=== PATIENT | male | born 1990 | race Caucasian/White ===

== ENCOUNTER 2023-02-25 15:31 | Inpatient (IN) | payer OTHER ==
[2023-02-25 15:53] LABS: Basophils # (A) 0.1 k/uL (0-0.2); Basophils % (A) 0 %; Eosinophils # (A) 0.3 k/uL (0-0.7); Eosinophils % (A) 2 %; HCT 42.5 % (39.0-53.0); HGB 14.5 gm/dL (13.0-17.5); Lymphocytes # (A) 2.1 k/uL (1.0-4.8); Lymphocytes % (A) 17 %; MCH 31.9 pg (25.0-35.0); MCHC 34.2 g/dL (31.0-37.0); MCV 93.4 fL (80.0-100.0); Mean Platelet Volume 7.3; Monocytes # (A) 0.6 k/uL (0-1.0); Monocytes % (A) 5 %; Neutrophils # (A) 8.8 k/uL (1.3-7.7); Neutrophils % (A) 73 %; Platelet Count 398 k/uL (150-450); RBC 4.55 m/uL (4.30-5.90); RDW 12.8 % (11.5-15.5)
[2023-02-25 16:08] LABS: ALT 76 U/L (4-49); AST 44 U/L (17-59); African American GFR (CKD) >90 (>60 ml/min/1.73 sqM); Albumin 4.7 g/dL (3.5-5.0); Alkaline Phosphatase 60 U/L (38-126); Anion Gap 13 mmol/L; Blood Urea Nitrogen 9 mg/dL (9-20); Calcium 10.4 mg/dL (8.4-10.2); Carbon Dioxide 22 mmol/L (22-30); Chloride 105 mmol/L (98-107); Glucose 100 mg/dL (74-99); Non-African American GFR(CKD) >90 (>60 ml/min/1.73 sqM); Potassium 4.1 mmol/L (3.5-5.1); Sodium 140 mmol/L (137-145); Total Bilirubin 0.4 mg/dL (0.2-1.3); Total Protein 7.6 g/dL (6.3-8.2)
--- NOTE | 2023-02-25 16:08 | XR ---
EXAMINATION TYPE: XR KUB DATE OF EXAM: 02/25/2023 Comparison: None Clinical History: 32-year-old male with abdominal pain Findings: The mild patchy density at the left base. No evidence for free intraperitoneal air. No dilated small bowel or air-fluid levels. There appears to be prominent ingested material within th e stomach. No significant stool burden. Mild scattered air within the colon. No suspicious calcifications seen. Impression: 1. Mild patchy atelectasis versus developing infiltrate at the left base. Correlate with patient's sy mptoms. 2. No evidence for free air or bowel obstruction. No significant stool burden. 3. The stomach appears full.
--- NOTE | 2023-02-25 16:32 | ED ---
Abdominal Pain HPI - General Chief Complaint: Abdominal Pain Stated Complaint: pancreatitis Source: patient, RN notes reviewed Mode of arrival: ambulatory Limitations: no limitations - History of Present Illness Initial Comments: 32-year-old male with a history of arthritis presents with about one hour castrate pain, sharp. It radiates to the back. Patient just got out of rehab, has not used alcohol in 3 days. Patient denies any vomiting but has nausea. Patient states he was diagnosed with pancreatitis at [facility] prior to going to rehabilitation. Denies any fever or chills. No changes to balance urination. No chest pain or shortness of breath. No abdominal pain elsewhere. No previous surgeries. Denies any illicit drug abuse. - Related Data Allergies Allergy/AdvReac Type Severity Reaction Status Date / Time cat dander Allergy Rash/Hives Verified 02/25/23 15:37 latex Allergy Rash/Hives Verified 02/25/23 15:37 Review of Systems ROS Statement: Those systems with pertinent positive or pertinent negative responses have been documented in the HPI. ROS Other: All systems not noted in ROS Statement are negative. Past Medical History Past Surgical History: No Surgical Hx Reported Smoking Status: Current every day smoker, Vaper Past Alcohol Use History: Abuse Past Drug Use History: Cocaine, Marijuana General Exam - General Exam Comments Initial Comments: Noted hypertensive. Does not appear to be ill or toxic. Cranial nerves II through XII grossly intact. Alert and oriented 4. Capillary refill less than 2 seconds. Limitations: no limitations General appearance: alert, in distress Head exam: Present: atraumatic, normocephalic, normal inspection Eye exam: Present: normal appearance, PERRL, EOMI. Absent: scleral icterus, conjunctival injection, periorbital swelling ENT exam: Present: normal exam, normal oropharynx, mucous membranes moist Neck exam: Present: normal inspection, full ROM. Absent: tenderness, meningismus, lymphadenopathy Respiratory exam: Present: normal lung sounds bilaterally. Absent: respiratory distress, wheezes, rales, rhonchi, stridor, chest wall tenderness, accessory muscle use Cardiovascular Exam: Present: regular rate, normal rhythm, normal heart sounds. Absent: systolic murmur, diastolic murmur, rubs, gallop, clicks GI/Abdominal exam: Present: tenderness, guarding, normal bowel sounds. Absent: distended, rebound, rigid Extremities exam: Present: normal inspection, full ROM, normal capillary refill. Absent: tenderness, pedal edema, joint swelling, calf tenderness Back exam: Present: normal inspection Neurological exam: Present: alert, oriented X3, CN II-XII intact Psychiatric exam: Present: normal affect, normal mood Skin exam: Present: warm, dry, intact, normal color. Absent: rash Course Vital Signs 02/25/23 15:33 Temperature 97.7 F Pulse Rate 95 Respiratory 20 Rate Blood Pressure 149/99 O2 Sat by Pulse 98 Oximetry - Reevaluation(s) Reevaluation #1: 02/25/23 18:00 Patient reevaluated, still having intense pain. Has not received any fluids or pain medication at this point. Lipase elevated. Morphine, 2 L normal saline fluid bolus, Zofran ordered. We'll plan for admission Reevaluation #2: 02/25/23 18:06 The case was discussed in detail with ED attending physician. Presentation, findings, treatment plan discussed in detail. Call placed to [facility] Reevaluation #3: 02/25/23 18:11 Case discussed in detail with the hospitalist physician, Dr. Nazario Christiansen admission of the patient. Gallbladder ultrasound was added. Medical Decision Making - Medical Decision Making Visual Physical Exam Vital signs reviewed General: Well-appearing, nontoxic, mild distress Head: Normocephalic, atraumatic Eyes: PERRLA, EOMI ENT: Airway patent Chest: Nonlabored breathing Skin: No visual rash, normal skin tone Neuro: Alert and oriented 3 Musculoskeletal: No gross abnormalities Signed, Dilan House PA-C Was pt. sent in by a medical professional or institution? @ -no Did you speak to anyone other than the patient for history? @ -no Did you review nursing and triage notes? @ -agree Were old charts reviewed? @ -no Differential Diagnosis? @ -Pancreatitis, gallbladder disease, cholecystitis, a standing cholangitis, peptic ulcer disease, less likely perforated viscus, does not appear to be definitively consistent with infectious process. Unlikely to be cardiopulmonary related as this does not fit the clinical picture. Does not fit the clinical picture of appendicitis or diverticulitis. EKG interpreted by me (3pts min.)? @ -None X-rays interpreted by me (1pt min.)? @ -Independent interpretation of the x-ray by me, KUB reveals no evidence of acute pathology. CT interpreted by me (1pt min.)? @ -None U/S interpreted by me (1pt. min.)? @ -A bladder ultrasound ordered and pending What testing was considered but not performed? (CT, X-rays, U/S, labs)? Why? @ CT was considered given the pancreatitis. However there was no indication for early utility, would not change initial treatment or disposition. Call blood or ultrasound ordered. What meds were considered but not given? Why? @ -[none] Did you discuss the management of the patient with other professionals? @ -Case discussed in detail with Dr. Lange, [facility]--accepts admission Did you reconcile home meds? @ -[none] Was smoking cessation discussed for >3mins.? @ -Cessation discussed I discussed smoking cessation for greater than 3 minutes. The risks of smoking were discussed with the patient including but not limited to risks of cancer, stroke, coronary artery disease and COPD. Also discussed with the patient were multiple methods of quitting smoking. Lastly we discussed the financial costs of smoking. Was critical care preformed (if so, how long)? @ -[none] Were there social determinants of health that impacted care today? How? (Homelessness, low income, unemployed, alcoholism, drug addiction, transportation, low edu. Level, literacy, decrease access to med. care, nursing home, rehab)? @ -No primary care physician, history of alcohol abuse Was there de-escalation of care discussed even if they declined? (Discuss DNR or withdrawal of care, Hospice)? @ -[Discuss DNR or withdrawal of care, Hospice?] What co-morbidities impacted this encounter? (DM, HTN, Smoking, COPD, CAD, Can cer, CVA, Hep., AIDS, mental health diagnosis, sleep apnea, morbid obesity)? @ -History of alcohol abuse, cigarette smoking Was patient admitted / discharged? @ -Admitted Undiagnosed new problem with uncertain prognosis? @ -Exacerbation of pancreatitis, patient had pancreatitis previously. Drug Therapy requiring intensive monitoring for toxicity (Heparin, Nitro, Insulin, Cardizem)? @ -[none] Were any procedures done? @ -[none] Diagnosis/symptom? @ -Acute pancreatitis Acute, or Chronic, or Acute on Chronic? @ -Acute Uncomplicated (without systemic symptoms) or Complicated (systemic symptoms)? @ -Essentially uncomplicated at this point. Side effects of treatment? @ -[none] Exacerbation, Progression, or Severe Exacerbation] @ -Recurrence Poses a threat to life or bodily function? @ -Could pose threat to life or bodily function Patient admitted to [facility]. Will be kept nothing by mouth. Lipase was in excess of 20,000. No definitive evidence of infectious process. Antibiotics were considered but withheld. He scan was considered but withheld. Gallbladder ultrasound pending. Patient given morphine 4 mg IV push and Zofran here in the ER. 2 L fluid bolus. The case was discussed in detail with ED attending physician. Presentation, findings, treatment plan discussed in detail. Discussed in detail with Dr. Bender - Lab Data Result diagrams: 02/25/23 15:37 02/25/23 15:37 Lab Results 02/25/23 02/25/23 02/25/23 Range/Units 15:37 15:37 15:38 WBC 12.0 H (3.8-10.6) k/uL RBC 4.55 (4.30-5.90) m/uL Hgb 14.5 (13.0-17.5) gm/dL Hct 42.5 (39.0-53.0) % MCV 93.4 (80.0-100.0) fL MCH 31.9 (25.0-35.0) pg MCHC 34.2 (31.0-37.0) g/dL RDW 12.8 (11.5-15.5) % Plt Count 398 (150-450) k/uL MPV 7.3 Neutrophils % 73 % Lymphocytes % 17 % Monocytes % 5 % Eosinophils % 2 % Basophils % 0 % Neutrophils # 8.8 H (1.3-7.7) k/uL Lymphocytes # 2.1 (1.0-4.8) k/uL Monocytes # 0.6 (0-1.0) k/uL Eosinophils # 0.3 (0-0.7) k/uL Basophils # 0.1 (0-0.2) k/uL Sodium 140 (137-145) mmol/L Potassium 4.1 (3.5-5.1) mmol/L Chloride 105 (98-107) mmol/L Carbon Dioxide 22 (22-30) mmol/L Anion Gap 13 mmol/L BUN 9 (9-20) mg/dL Creatinine 0.64 L (0.66-1.25) mg/dL Est GFR (CKD-EPI)AfAm >90 (>60 ml/min/1.73 sqM) Est GFR (CKD-EPI)NonAf >90 (>60 ml/min/1.73 sqM) Glucose 100 H (74-99) mg/dL Calcium 10.4 H (8.4-10.2) mg/dL Total Bilirubin 0.4 (0.2-1.3) mg/dL AST 44 (17-59) U/L ALT 76 H (4-49) U/L Alkaline Phosphatase 60 (38-126) U/L Troponin I <0.012 (0.000-0.034) ng/mL Total Protein 7.6 (6.3-8.2) g/dL Albumin 4.7 (3.5-5.0) g/dL Amylase 3420 H* (30-110) U/L Lipase >05145 H (23-300) U/L Disposition Clinical Impression: Pancreatitis Disposition: ADMITTED IP TO THIS [facility] Condition: Stable Is patient prescribed a controlled substance at d/c from ED?: No Referrals: None,Stated [Primary Care Provider] - 1-2 days Time of Disposition: 18:11 Decision to Admit Reason: Admit from EC Decision Time: 18:11
[2023-02-25 17:24] LABS: Lipase >20000 U/L (23-300)
[2023-02-25 17:26] LABS: Amylase 3420 U/L (30-110)
[2023-02-25] MEDS ORDERED: MORPHINE SULFATE 4 MG/ML SYRINGE IVP STA (17:57)
[2023-02-25] MEDS ORDERED: ONDANSETRON 4 MG/2 ML VIAL IVP STA (17:57)
[2023-02-25] MEDS ORDERED: SODIUM CHLORIDE 0.9% 2,000 ML IV STA (17:59)
[2023-02-25] MEDS ORDERED: NALOXONE 0.4 MG/ML 1 ML VIAL IV PRN (18:11)
[2023-02-25] MEDS ORDERED: ACET/COD 300 MG/30 MG STARTER PACK 6 TAB BTL PO STA (18:11)
[2023-02-25] MEDS ORDERED: MORPHINE SULFATE 4 MG/ML SYRINGE IV STA (18:54)
--- NOTE | 2023-02-25 19:52 | US ---
EXAMINATION TYPE: US gallbladder DATE OF EXAM: 02/25/2023 COMPARISON: NONE CLINICAL INDICATION: Male, 32 years old with history of Upper abdominal pain; severe epigastric pain today. Lipase = > 30785. Amylase = 3420. TECHNIQUE: Multiple sonographic images of the right upper quadrant are obtained. FINDINGS: EXAM MEASUREMENTS: Liver Length: 14.0 cm Gallbladder Wall: 0.19 cm CBD: 0.19 cm Right Kidney: 10.2 x 5.4 x 5.3 cm Sap Hana Architect notes: Slightly limited due to pt not being able to tolerate pressure near epigastric reg ion and unable to hold breath Pancreas: There is visualized. It appears heterogeneous and thickened. Liver: Left lobe limited due to pt not tolerating pressure in epigastric region Gallbladder: wnl Evidence for sonographic Nieto's sign: Yes CBD: wnl Right Kidney: Cystic area seen mid pole measuring 2.0 x 1.8 x 2.1cm . Internal septations are presen t. Six-month follow-up ultrasound to reassess this complex cyst. No hydronephrosis. IMPRESSION: 1. Only a portion of the pancreatic head is seen and this appears heterogeneous and thickened. Correl ate for possible underlying acute pancreatitis. No fluid collection is identified here. 2. No gallstones or biliary ductal dilatation. 3. Six-month follow-up renal ultrasound to reassess a 2.1 cm complex cyst of the right kidney demonst rating internal septations.
[2023-02-25] MEDS ORDERED: HYDROmorphone 1 MG/ML 1 ML SYRINGE IVP STA (22:15)
--- NOTE | 2023-02-25 22:49 | P.HPIM ---
History of Present Illness H&P Date: 02/25/23 Patient is a 32-year-old male with a PMH of alcohol abuse and multiple bouts of pancreatitis who was sent to the emergency room from [place] where the patient had been staying for the past 2 weeks. Patient notes that he normally drinks a fifth to a half a gallon of whiskey daily and has been doing so for the past several years. Reports last drink was 23 days ago and he was initially at a crisis center for 9 days and was subsequently transferred to [place] where he has been for the past 2 weeks. He was doing well until earlier today when he gradually developed worsening epigastric discomfort with nausea and small amounts of vomiting constantly. He reports that the pain is 10 out of 10 in the epigastrium, nonradiating, worsened with certain movements. Denied experiencing fever, chills, cough, diarrhea. In the emergency room a gallbladder ultrasound revealed findings consistent with acute pancreatitis with no fluid collection noted with no gallstones or biliary ductal dilatation noted. There was also a 2.1 cm complex cystof the right kidney with a six-month follow-up recommended. Laboratory evaluation was remarkable for leukocytosis of 12.0, lipase greater than 20,000, amylase 3420, calcium 10.4, ALT 76. ED documentation reviewed and case discussed with ED provider. Review of systems: Pertinent positives and negatives as discussed in HPI, a complete review of systems was performed and all other systems are negative. Physical examination: Vital signs reviewed General: non toxic, no distress, appears at stated age, normal weight Derm: no unusual rashes/lesions, warm Head: atraumatic, normocephalic, symmetric Eyes: EOMI, no lid lag, anicteric sclera, pupils equal round reactive to light ENT: Nose and ears atraumatic Neck: No cervical lymphadenopathy, trachea midline, supple Mouth: no lip lesion, mucus membranes moist Cardiovascular: S1S2 reg, no murmur, positive dorsalis pedis pulse bilateral, no edema Lungs: CTA bilateral, no rhonchi, no rales, no accessory muscle use Abdominal: Severe epigastric tenderness with guarding Ext: muscle strength 5 out of 5 in all 4 extremities grossly, no gross muscle atrophy, no contractures, Neuro: CN II-XI grossly intact, no gross focal neuro deficits Psych: Alert, oriented, appropriate affect Assessment: Acute on chronic alcoholic pancreatitis Hypercalcemia Leukocytosis, suspect due to acute stressor with no signs of active infection at this time Imaging: In the emergency room a gallbladder ultrasound revealed findings consistent with acute pancreatitis with no fluid collection noted with no gallstones or biliary ductal dilatation noted. There was also a 2.1 cm complex cystof the right kidney with a six-month follow-up recommended. Data Review: Laboratory evaluation was remarkable for leukocytosis of 12.0, lipase greater than 20,000, amylase 3420, calcium 10.4, ALT 76. Plan: Continue IV fluids normal saline 150 mL/h Nothing by mouth for now Monitor lipase Pain control with morphine and Dilaudid Advised patient on importance of cessation from alcohol use DVT prophylaxis: Heparin subcu The patient is admitted with an anticipated greater than 2 midnight stay for evaluation of pancreatitis CODE STATUS: Full Code Discussed with: Patient Anticipated discharge place: [place] Past Medical History History of Any Multi-Drug Resistant Organisms: None Reported Past Surgical History: Adenoidectomy Past Anesthesia/Blood Transfusion Reactions: No Reported Reaction Past Psychological History: Anxiety, Bipolar, Depression Smoking Status: Current every day smoker, Vaper Past Alcohol Use History: Abuse Past Drug Use History: Cocaine, Marijuana Medications and Allergies Home Medications Medication Instructions Recorded Confirmed Type Acetaminophen Tab [Tylenol] 650 mg PO Q4H PRN 02/25/23 02/25/23 History Albuterol Sulfate [Albuterol 2 puff INHALATION RT-Q6H PRN 02/25/23 02/25/23 History Sulfate Hfa] Amoxic-Pot Clav 875-125Mg 1 tab PO BID 02/25/23 02/25/23 History [Augmentin 875-125] Calcium/Magnesium/Zinc/Vitamin D 1 tab PO TID PRN 02/25/23 02/25/23 History 334/134/5mg Chlorpheniramine Maleate 4 mg PO Q4H PRN 02/25/23 02/25/23 History [Chlor-Trimeton] Folic Acid 1 mg PO DAILY 02/25/23 02/25/23 History Mag Hydrox/Aluminum Hyd/Simeth 30 ml PO Q4H PRN 02/25/23 02/25/23 History [Mylanta Maximum Strength Liq] Mirtazapine [Remeron] 15 mg PO HS 02/25/23 02/25/23 History Multivitamins, Thera [Multivitamin 1 tab PO DAILY 02/25/23 02/25/23 History (formulary)] Nicotine 21Mg/24Hr Patch [Habitrol] 1 patch TRANSDERM DAILY 02/25/23 02/25/23 History OXcarbazepine [Trileptal] 300 mg PO BID 02/25/23 02/25/23 History Omeprazole [PriLOSEC] 20 mg PO DAILY PRN 02/25/23 02/25/23 History QUEtiapine FUMARATE [SEROquel] 300 mg PO HS 02/25/23 02/25/23 History Thiamine [Vitamin B-1] 100 mg PO DAILY 02/25/23 02/25/23 History Venlafaxine HCl [Effexor] 75 mg PO DAILY 02/25/23 02/25/23 History busPIRone HCl [Buspar] 10 mg PO TID 02/25/23 02/25/23 History cloNIDine HCL [Catapres] 0.1 - 0.3 mg PO Q4H PRN 02/25/23 02/25/23 History guaiFENesin [guaiFENesin Oral 200 mg PO Q4H PRN 02/25/23 02/25/23 History Solution] ondansetron HCL [Zofran] 8 mg PO Q6H PRN 02/25/23 02/25/23 History Allergies Allergy/AdvReac Type Severity Reaction Status Date / Time cat dander Allergy Rash/Hives Verified 02/25/23 19:50 latex Allergy Rash/Hives Verified 02/25/23 19:50 pollen extracts Allergy Unknown Verified 02/25/23 19:50 Physical Exam Vitals: Vital Signs Temp Pulse Pulse Resp BP BP Pulse Ox 02/25/23 20:41 98.1 F 105 H 18 147/95 100 02/25/23 20:15 90 18 168/92 99 02/25/23 18:30 99 18 176/98 99 02/25/23 15:33 97.7 F 95 20 149/99 98 Intake and Output 02/25/23 02/25/23 02/25/23 06:59 14:59 22:59 Other: Weight 86.183 kg Results CBC & Chem 7: 02/25/23 15:37 02/25/23 15:37 Labs: Abnormal Lab Results - Last 24 Hours (Table) 02/25/23 02/25/23 Range/Units 15:37 15:37 WBC 12.0 H (3.8-10.6) k/uL Neutrophils # 8.8 H (1.3-7.7) k/uL Creatinine 0.64 L (0.66-1.25) mg/dL Glucose 100 H (74-99) mg/dL Calcium 10.4 H (8.4-10.2) mg/dL ALT 76 H (4-49) U/L Amylase 3420 H* (30-110) U/L Lipase >64290 H (23-300) U/L Thrombosis Risk Factor Assmnt - Choose All That Apply Any of the Below Risk Factors Present?: No Other Risk Factors: No Thrombosis Risk Factor Assessment Level: Very Low Risk
[2023-02-25] MEDS: SODIUM CHLORIDE 0.9% 1,000 ML IV SCH (22:59)
[2023-02-26] MEDS: MORPHINE SULFATE 4 MG/ML SYRINGE IV PRN ×7 (00:48→21:12)
[2023-02-26] MEDS: HEPARIN SODIUM,PORCINE 5,000 UNIT/ML 1 ML VIAL SQ SCH ×4 (00:49→23:17)
--- NOTE | 2023-02-26 01:01 | CT ---
EXAM: CT Abdomen and Pelvis With Intravenous Contrast CLINICAL HISTORY: ITS.REASON CT Reason: pancreatitis TECHNIQUE: Axial computed tomography images of the abdomen and pelvis with intravenous contrast. CTDI is 18.7 mGy and DLP is 975.3 mGy-cm. This CT exam was performed using one or more of the following dose reduction techniques: automated exposure control, adjustment of the mA and/or kV according to patient size, and/or use of iterative reconstruction technique. COMPARISON: No relevant prior studies available. FINDINGS: Lung bases: Unremarkable. No mass. No consolidation. ABDOMEN: Liver: Hepatic steatosis. Gallbladder and bile ducts: Unremarkable. No calcified stones. No ductal dilation. Pancreas: Edema surrounding the pancreas, consistent with pancreatitis. Reactive wall thickening of the adjacent duodenum. No ductal dilation. Spleen: Unremarkable. No splenomegaly. Adrenals: Unremarkable. No mass. Kidneys and ureters: Renal cysts. No hydronephrosis. Stomach and bowel: Diverticulosis, without acute diverticulitis. No obstruction. PELVIS: Appendix: Normal appendix. Bladder: Unremarkable. No mass. Reproductive: Unremarkable as visualized. ABDOMEN and PELVIS: Intraperitoneal space: Unremarkable. No free air. No significant fluid collection. Bones/joints: No acute fracture. No dislocation. Soft tissues: Unremarkable. Vasculature: Unremarkable. No abdominal aortic aneurysm. Lymph nodes: Unremarkable. No enlarged lymph nodes. IMPRESSION: Edema surrounding the pancreas, consistent with pancreatitis. Hepatic steatosis. No pseudocyst. Reactive wall thickening of the adjacent duodenum.
[2023-02-26] MEDS: SODIUM CHLORIDE 0.9% 1,000 ML IV SCH ×4 (05:06→21:47)
[2023-02-26] MEDS: THIAMINE 100 MG TAB PO SCH (07:58)
[2023-02-26] MEDS: FOLIC ACID 1 MG TAB PO SCH (07:58)
[2023-02-26] MEDS: ONDANSETRON 4 MG/2 ML VIAL IVP PRN ×2 (07:58→14:41)
[2023-02-26] MEDS: busPIRone HCl 10 MG TAB PO SCH ×3 (07:58→20:20)
[2023-02-26] MEDS: OXcarbazepine 300 MG TAB PO SCH ×2 (07:59→20:20)
[2023-02-26] MEDS: VENLAFAXINE HCL 75 MG TAB PO SCH (08:00)
[2023-02-26 09:00] LABS: ALT 52 U/L (4-49); AST 34 U/L (17-59); African American GFR (CKD) >90 (>60 ml/min/1.73 sqM); Albumin 3.8 g/dL (3.5-5.0); Albumin/Globulin Ratio 1.5; Alkaline Phosphatase 54 U/L (38-126); Anion Gap 9 mmol/L; Blood Urea Nitrogen 5 mg/dL (9-20); Calcium 9.4 mg/dL (8.4-10.2); Carbon Dioxide 21 mmol/L (22-30); Chloride 106 mmol/L (98-107); Globulin 2.6 g/dL; Glucose 90 mg/dL (74-99); Non-African American GFR(CKD) >90 (>60 ml/min/1.73 sqM); Potassium 3.9 mmol/L (3.5-5.1); Sodium 136 mmol/L (137-145); Total Bilirubin 0.7 mg/dL (0.2-1.3); Total Protein 6.4 g/dL (6.3-8.2)
[2023-02-26 09:04] LABS: Prothrombin Time 10.6 sec (10.0-12.5)
[2023-02-26 09:33] LABS: Lipase 3884 U/L (23-300)
[2023-02-26 10:09] LABS: Basophils % (A) 0 %; Eosinophils % (A) 0 %; HCT 42.8 % (39.0-53.0); HGB 14.1 gm/dL (13.0-17.5); Lymphocytes # (A) 1.1 k/uL (1.0-4.8); Lymphocytes % (A) 8 %; MCH 31.4 pg (25.0-35.0); MCHC 32.8 g/dL (31.0-37.0); MCV 95.5 fL (80.0-100.0); Mean Platelet Volume 7.5; Monocytes # (A) 0.4 k/uL (0-1.0); Monocytes % (A) 3 %; Neutrophils # (A) 11.7 k/uL (1.3-7.7); Neutrophils % (A) 87 %; Platelet Count 354 k/uL (150-450); RBC 4.48 m/uL (4.30-5.90); RDW 12.7 % (11.5-15.5); WBC 13.4 k/uL (3.8-10.6)
[2023-02-26 10:36] LABS: Appearance,Urine Clear (Clear); Bilirubin,Urine Negative (Negative); Blood,Urine Negative (Negative); Color,Urine Colorless; Glucose,Urine (UA) Negative (Negative); Ketones,Urine Trace (Negative); Leukocyte Esterase,Urine Negative (Negative); Nitrite,Urine Negative (Negative); Protein,Urine Negative (Negative); Specific Gravity,Urine 1.015 (1.001-1.035); Urobilinogen,Urine <2.0 mg/dL (<2.0)
[2023-02-26 10:53] LABS: Amphetamine Screen,Urine Not Detected (NotDetected); Barbiturate Screen,Urine Not Detected (NotDetected); Benzodiazepines Screen,Urine Not Detected (NotDetected); Cocaine Screen,Urine Not Detected (NotDetected); Methadone Screen, Urine Not Detected (NotDetected); Opiate Screen,Urine Detected (NotDetected); Oxycodone Screen, Urine Not Detected (NotDetected); Phencyclidine Screen,Urine Not Detected (NotDetected); Tricyclic Antidepressant,Urine Not Detected (NotDetected); Urn Cannabinoid Scrn Not Detected (NotDetected)
--- NOTE | 2023-02-26 14:43 | P.PN ---
Subjective Progress Note Date: 02/26/23 Hospital Course: 32-year-old male with a PMH of alcohol abuse and multiple bouts of pancreatitis who was sent to the emergency room from [place] where the patient had been staying for the past 2 weeks. In the emergency room a gallbladder ultrasound revealed findings consistent with acute pancreatitis with no fluid collection noted with no gallstones or biliary ductal dilatation noted. There was also a 2.1 cm complex cystof the right kidney with a six-month follow-up recommended. Laboratory evaluation was remarkable for leukocytosis of 12.0, lipase greater than 20,000, amylase 3420, calcium 10.4, ALT 76. Patient admitted for acute pancreatitis, currently on IV fluids and pain regimen. Subjective: Seen and examined at bedside. Continues to have abdominal pain and nausea. Pertinent positives and negatives as discussed above, a complete review of systems was performed and all other systems are negative. Vitals Signs Reviewed. General: nontoxic, no distress, appears at stated age Derm: warm, dry Head: atraumatic, normocephalic, symmetric Eyes: EOMI, no lid lag, anicteric sclera Mouth: no lip lesion, mucus membranes moist Cardiovascular: S1S2 reg, no murmur Lungs: CTA bilateral, no rhonchi, no rales , no accessory muscle use Abdominal: soft, epigastric tenderness, no guarding, no appreciable organomegaly Ext: no gross muscle atrophy, no edema, no contractures Neuro: CN II-XI grossly intact, no focal neuro deficits Psych: Alert, oriented, appropriate affect Data Reviewed Today: Pertinent Labs: WBC 13.4, potassium 3.9, BUN 5, creatinine 0.49, lipase 3800 Imaging: CT abdomen and pelvis shows evidence of pancreatitis, hepatic steatosis, reactive wall thickening of the adjacent duodenum Assessment and Plan: Acute pancreatitis Leukocytosis, reactive History of alcohol dependence Anxiety/depression/bipolar -Unclear etiology of pancreatitis -Patient claims that he has not had any alcohol in 24 days -Other possibilities to consider his medication-induced pancreatitis, hypertriglyceridemia, or autoimmune peridentitis -Lipid panel ordered -He will was recently started on Remeron and Effexor, low likelihood of pancreatitis secondary to posterior medication -Continue thiamine and folic acid -On normal saline at 1 50 mL an hour -Morphine 4 mg IV every 3 hours -Continue her other home medications DVT ppx: Subcu heparin Code status: Full code Anticipated discharge place: Pending clinical course Anticipated discharge time: Pending clinical course Objective - Vital Signs Vital signs: Vital Signs Temp 98.1 F 02/26/23 07:40 Pulse 106 H 02/26/23 07:40 Resp 18 02/26/23 07:40 BP 153/94 02/26/23 07:40 Pulse Ox 97 02/26/23 07:40 FiO2 Intake & Output 02/25/23 02/26/23 02/26/23 18:59 06:59 18:59 Weight 86.183 kg Other: # Voids 3 1 - Labs CBC & Chem 7: 02/26/23 09:47 02/26/23 07:14 Labs: Abnormal Lab Results - Last 24 Hours (Table) 02/25/23 02/25/23 02/26/23 Range/Units 15:37 15:37 07:14 WBC 12.0 H (3.8-10.6) k/uL Neutrophils # 8.8 H (1.3-7.7) k/uL Sodium 136 L (137-145) mmol/L Carbon Dioxide 21 L (22-30) mmol/L BUN 5 L (9-20) mg/dL Creatinine 0.64 L 0.49 L (0.66-1.25) mg/dL Glucose 100 H (74-99) mg/dL Calcium 10.4 H (8.4-10.2) mg/dL ALT 76 H 52 H (4-49) U/L Amylase 3420 H* (30-110) U/L Lipase >45328 H 3884 H (23-300) U/L Urine Ketones (Negative) Urine Opiates Screen (NotDetected) 02/26/23 02/26/23 Range/Units 09:47 09:49 WBC 13.4 H (3.8-10.6) k/uL Neutrophils # 11.7 H (1.3-7.7) k/uL Sodium (137-145) mmol/L Carbon Dioxide (22-30) mmol/L BUN (9-20) mg/dL Creatinine (0.66-1.25) mg/dL Glucose (74-99) mg/dL Calcium (8.4-10.2) mg/dL ALT (4-49) U/L Amylase (30-110) U/L Lipase (23-300) U/L Urine Ketones Trace H (Negative) Urine Opiates Screen Detected H (NotDetected)
[2023-02-26] MEDS: NICOTINE 14MG/24HR PATCH TRANSDERM SCH (17:39)
[2023-02-26] MEDS: MIRTAZAPINE 15 MG TAB PO SCH (20:20)
[2023-02-26] MEDS: QUEtiapine 100 MG TAB PO SCH (20:20)
[2023-02-27] MEDS: MORPHINE SULFATE 4 MG/ML SYRINGE IV PRN ×2 (01:35→07:57)
[2023-02-27] MEDS: ONDANSETRON 4 MG/2 ML VIAL IVP PRN ×2 (01:36→07:56)
[2023-02-27] MEDS: SODIUM CHLORIDE 0.9% 1,000 ML IV SCH ×3 (05:14→18:18)
[2023-02-27 07:38] LABS: Basophils % (A) 0 %; Eosinophils # (A) 0.1 k/uL (0-0.7); Eosinophils % (A) 1 %; HCT 37.8 % (39.0-53.0); HGB 12.5 gm/dL (13.0-17.5); Lymphocytes # (A) 1.7 k/uL (1.0-4.8); Lymphocytes % (A) 17 %; MCH 31.4 pg (25.0-35.0); Mean Platelet Volume 7.4; Monocytes # (A) 0.7 k/uL (0-1.0); Monocytes % (A) 6 %; Neutrophils # (A) 7.6 k/uL (1.3-7.7); Neutrophils % (A) 74 %; Platelet Count 331 k/uL (150-450); RBC 3.98 m/uL (4.30-5.90); RDW 12.8 % (11.5-15.5); WBC 10.3 k/uL (3.8-10.6)
[2023-02-27 07:41] LABS: Chol/HDL Ratio 3.29 Ratio; LDL Cholesterol,Calculated 77.4 mg/dL (0.0-131.0)
[2023-02-27 07:55] LABS: ALT 35 U/L (4-49); AST 23 U/L (17-59); African American GFR (CKD) >90 (>60 ml/min/1.73 sqM); Albumin 3.3 g/dL (3.5-5.0); Albumin/Globulin Ratio 1.4; Alkaline Phosphatase 50 U/L (38-126); Anion Gap 11 mmol/L; Blood Urea Nitrogen 3 mg/dL (9-20); Carbon Dioxide 23 mmol/L (22-30); Chloride 105 mmol/L (98-107); Globulin 2.4 g/dL; Glucose 75 mg/dL (74-99); Non-African American GFR(CKD) >90 (>60 ml/min/1.73 sqM); Potassium 3.7 mmol/L (3.5-5.1); Sodium 139 mmol/L (137-145); Total Bilirubin 0.9 mg/dL (0.2-1.3); Total Protein 5.7 g/dL (6.3-8.2)
[2023-02-27] MEDS: FOLIC ACID 1 MG TAB PO SCH (08:27)
[2023-02-27] MEDS: busPIRone HCl 10 MG TAB PO SCH ×3 (08:27→21:48)
[2023-02-27] MEDS: OXcarbazepine 300 MG TAB PO SCH ×2 (08:27→21:48)
[2023-02-27] MEDS: THIAMINE 100 MG TAB PO SCH (08:27)
[2023-02-27] MEDS: VENLAFAXINE HCL 75 MG TAB PO SCH (08:27)
[2023-02-27] MEDS: HEPARIN SODIUM,PORCINE 5,000 UNIT/ML 1 ML VIAL SQ SCH ×2 (08:27→17:16)
[2023-02-27] MEDS: NICOTINE 14MG/24HR PATCH TRANSDERM SCH (08:27)
--- NOTE | 2023-02-27 11:51 | P.PN ---
Subjective Progress Note Date: 02/27/23 Hospital Course: 32-year-old male with a PMH of alcohol abuse and multiple bouts of pancreatitis who was sent to the emergency room from [place] where the patient had been staying for the past 2 weeks. In the emergency room a gallbladder ultrasound revealed findings consistent with acute pancreatitis with no fluid collection noted with no gallstones or biliary ductal dilatation noted. There was also a 2.1 cm complex cystof the right kidney with a six-month follow-up recommended. CT abdomen and pelvis shows evidence of pancreatitis, hepatic steatosis, reactive wall thickening of the adjacent duodenum. Laboratory evaluation was remarkable for leukocytosis of 12.0, lipase greater than 20,000, amylase 3420, calcium 10.4, ALT 76. Patient admitted for acute pancreatitis, currently on IV fluids and pain regimen. Subjective: Seen and examined at bedside. Abdominal pain improved. Nausea is improved. Pertinent positives and negatives as discussed above, a complete review of systems was performed and all other systems are negative. Vitals Signs Reviewed. General: nontoxic, no distress, appears at stated age Derm: warm, dry Head: atraumatic, normocephalic, symmetric Eyes: EOMI, no lid lag, anicteric sclera Mouth: no lip lesion, mucus membranes moist Cardiovascular: S1S2 reg, no murmur Lungs: CTA bilateral, no rhonchi, no rales , no accessory muscle use Abdominal: soft, epigastric tenderness, no guarding, no appreciable organomegaly Ext: no gross muscle atrophy, no edema, no contractures Neuro: CN II-XI grossly intact, no focal neuro deficits Psych: Alert, oriented, appropriate affect Data Reviewed Today: Pertinent Labs: WBC 10.03, hemoglobin 12.5, potassium 3.7, BUN 3, creatinine 0.58, triglyceride 104 Imaging: No new imaging Assessment and Plan: Acute severe pancreatitis Leukocytosis, reactive History of alcohol dependence Anxiety/depression/bipolar Right kidney cyst, 2.1 cm complex -Unclear etiology of pancreatitis -Patient claims that he has not had any alcohol in over 3 weeks -Possibly medication induced or autoimmune pancreatitis, patient will need outpatient GI follow-up -Continue thiamine and folic acid -On normal saline at 150 mL an hour -Started on full liquid diet -Morphine 4 mg IV every 3 hours, monitor for any respiratory depression -Continue other home medications -Needs six-month follow-up with regards to right kidney cyst DVT ppx: Subcu heparin Code status: Full code Anticipated discharge place: Home versus [place] Anticipated discharge time: Likely tomorrow Objective - Vital Signs Vital signs: Vital Signs Temp 98.3 F 02/27/23 06:50 Pulse 103 H 02/27/23 06:50 Resp 16 02/27/23 06:50 BP 131/75 02/27/23 06:50 Pulse Ox 95 02/27/23 06:50 FiO2 Intake & Output 02/26/23 02/27/23 02/27/23 18:59 06:59 18:59 Other: Voiding Method Toilet # Voids 5 2 - Labs CBC & Chem 7: 02/27/23 07:10 02/27/23 07:10 Labs: Abnormal Lab Results - Last 24 Hours (Table) 02/27/23 02/27/23 Range/Units 07:10 07:10 RBC 3.98 L (4.30-5.90) m/uL Hgb 12.5 L (13.0-17.5) gm/dL Hct 37.8 L (39.0-53.0) % BUN 3 L (9-20) mg/dL Creatinine 0.58 L (0.66-1.25) mg/dL Total Protein 5.7 L (6.3-8.2) g/dL Albumin 3.3 L (3.5-5.0) g/dL
[2023-02-27] MEDS: QUEtiapine 100 MG TAB PO SCH (21:48)
[2023-02-27] MEDS: MIRTAZAPINE 15 MG TAB PO SCH (21:48)
[2023-02-28] MEDS: HEPARIN SODIUM,PORCINE 5,000 UNIT/ML 1 ML VIAL SQ SCH ×3 (00:57→13:38)
[2023-02-28] MEDS: SODIUM CHLORIDE 0.9% 1,000 ML IV SCH ×3 (01:00→13:37)
[2023-02-28 08:36] VITALS: BP 146/85; PULSE 101; RESP 14; TEMP 97.8
[2023-02-28] MEDS: NICOTINE 14MG/24HR PATCH TRANSDERM SCH (09:12)
[2023-02-28] MEDS: FOLIC ACID 1 MG TAB PO SCH (09:12)
[2023-02-28] MEDS: THIAMINE 100 MG TAB PO SCH (09:12)
[2023-02-28] MEDS: busPIRone HCl 10 MG TAB PO SCH ×2 (09:12→15:56)
[2023-02-28] MEDS: VENLAFAXINE HCL 75 MG TAB PO SCH (09:13)
[2023-02-28] MEDS: OXcarbazepine 300 MG TAB PO SCH (09:13)
--- NOTE | 2023-02-28 12:08 | P.DS ---
Providers Date of admission: 02/25/23 18:04 Expected date of discharge: 02/28/23 Attending physician: Ho Lange MD Primary care physician: Stated None Hospital Course: Discharge Diagnosis: Acute severe pancreatitis Leukocytosis, reactive History of alcohol dependence Anxiety/depression/bipolar Right kidney cyst, 2.1 cm complex Hospital Course: 32-year-old male with a PMH of alcohol abuse and multiple bouts of pancreatitis who was sent to the emergency room from [place] where the patient had been staying for the past 2 weeks. In the emergency room a gallbladder ultrasound revealed findings consistent with acute pancreatitis with no fluid collection noted with no gallstones or biliary ductal dilatation noted. There was also a 2.1 cm complex cystof the right kidney with a six-month follow-up recommended. CT abdomen and pelvis shows evidence of pancreatitis, hepatic steatosis, reactive wall thickening of the adjacent duodenum. Laboratory evaluation was remarkable for leukocytosis of 12.0, lipase greater than 20,000, amylase 3420, calcium 10.4, ALT 76. Patient admitted for acute pancreatitis. Improved with IV fluids and pain management. No clear cause for recurrent pancreatitis as last alcoholic drink was over 2 weeks ago. Reviewed medications, less likely to cause pancreatitis. Triglycerides within normal limits. Patient would need outpatient follow-up with GI if recurrent pancreatitis despite no further alcohol use. Patient being discharged back to [place]. He also needs follow-up for right kidney cyst which was noted to be 2.1 cm. Patient seen and examined at bedside. Vital signs reviewed and stable. General: nontoxic, no distress, appears at stated age Derm: warm, dry Head: atraumatic, normocephalic, symmetric Eyes: EOMI, no lid lag, anicteric sclera Mouth: no lip lesion, mucus membranes moist Cardiovascular: S1S2 reg, no murmur Lungs: CTA bilateral, no rhonchi, no rales , no accessory muscle use Abdominal: soft, nontender to palpation, no guarding, no appreciable organomegaly Ext: no gross muscle atrophy, no edema, no contractures Neuro: CN II-XI grossly intact, no focal neuro deficits Psych: Alert, oriented, appropriate affect A total of 33 minutes of time were spent preparing this complex discharge summary. Patient was discharged on 02/28/23 at 10:33. Patient Condition at Discharge: Stable Plan - Discharge Summary Discharge Rx Participant: Yes New Discharge Prescriptions: Continue Mag Hydrox/Aluminum Hyd/Simeth [Mylanta Maximum Strength Liq] 30 ml PO Q4H PRN PRN Reason: Gi Upset cloNIDine HCL [Catapres] 0.1 - 0.3 mg PO Q4H PRN PRN Reason: bp greater than 160/100 Calcium/Magnesium/Zinc/Vitamin D 334/134/5mg 1 tab PO TID PRN PRN Reason: muscle cramps Venlafaxine HCl [Effexor] 75 mg PO DAILY Albuterol Sulfate [Albuterol Sulfate Hfa] 2 puff INHALATION RT-Q6H PRN PRN Reason: Wheezing Omeprazole [PriLOSEC] 20 mg PO DAILY PRN PRN Reason: Heartburn Nicotine 21Mg/24Hr Patch [Habitrol] 1 patch TRANSDERM DAILY ondansetron HCL [Zofran] 8 mg PO Q6H PRN PRN Reason: Nausea Acetaminophen Tab [Tylenol] 650 mg PO Q4H PRN PRN Reason: Fever And/ Or Pain Thiamine [Vitamin B-1] 100 mg PO DAILY guaiFENesin [guaiFENesin Oral Solution] 200 mg PO Q4H PRN PRN Reason: Cough Multivitamins, Thera [Multivitamin (formulary)] 1 tab PO DAILY Chlorpheniramine Maleate [Chlor-Trimeton] 4 mg PO Q4H PRN PRN Reason: Allergy Symptoms busPIRone HCl [Buspar] 10 mg PO TID Mirtazapine [Remeron] 15 mg PO HS QUEtiapine FUMARATE [SEROquel] 300 mg PO HS OXcarbazepine [Trileptal] 300 mg PO BID Folic Acid 1 mg PO DAILY Discontinued Amoxic-Pot Clav 875-125Mg [Augmentin 875-125] 1 tab PO BID Discharge Medication List Acetaminophen Tab [Tylenol] 650 mg PO Q4H PRN 02/25/23 [History] Albuterol Sulfate [Albuterol Sulfate Hfa] 2 puff INHALATION RT-Q6H PRN 02/25/23 [History] Calcium/Magnesium/Zinc/Vitamin D 334/134/5mg 1 tab PO TID PRN 02/25/23 [History] Chlorpheniramine Maleate [Chlor-Trimeton] 4 mg PO Q4H PRN 02/25/23 [History] Folic Acid 1 mg PO DAILY 02/25/23 [History] Mag Hydrox/Aluminum Hyd/Simeth [Mylanta Maximum Strength Liq] 30 ml PO Q4H PRN 02/25/23 [History] Mirtazapine [Remeron] 15 mg PO HS 02/25/23 [History] Multivitamins, Thera [Multivitamin (formulary)] 1 tab PO DAILY 02/25/23 [History] Nicotine 21Mg/24Hr Patch [Habitrol] 1 patch TRANSDERM DAILY 02/25/23 [History] OXcarbazepine [Trileptal] 300 mg PO BID 02/25/23 [History] Omeprazole [PriLOSEC] 20 mg PO DAILY PRN 02/25/23 [History] QUEtiapine FUMARATE [SEROquel] 300 mg PO HS 02/25/23 [History] Thiamine [Vitamin B-1] 100 mg PO DAILY 02/25/23 [History] Venlafaxine HCl [Effexor] 75 mg PO DAILY 02/25/23 [History] busPIRone HCl [Buspar] 10 mg PO TID 02/25/23 [History] cloNIDine HCL [Catapres] 0.1 - 0.3 mg PO Q4H PRN 02/25/23 [History] guaiFENesin [guaiFENesin Oral Solution] 200 mg PO Q4H PRN 02/25/23 [History] ondansetron HCL [Zofran] 8 mg PO Q6H PRN 02/25/23 [History] Follow up Appointment(s)/Referral(s): Louisa Alamo MD [STAFF PHYSICIAN] - 1 Week (Office closed at time of discharge. Please call for follow-up appointment.) None,Stated [Primary Care Provider] - 1-2 days (Office is closed at time of discharge. Please call a primary care provider for follow-up appointment.) Patient Instructions/Handouts: Pancreatitis (DC) Activity/Diet/Wound Care/Special Instructions: Please see PCP and GI. There is a 2.1 cm cyst noted on right kidney, that needs further imaging and follow up with PCP. Discharge Disposition: OTHER INSTITUTION NOT DEFINED
== END 2023-02-28 16:39 | disposition home or self-care (01) | DRG 282 ==
LOC: EC 15:31 → 4SSUR 18:04
PROVIDERS: ADMIT Student in an Organized Health Care Education/Training Program; ATTEND Student in an Organized Health Care Education/Training Program
DX: K85.20 Alcohol induced acute pancreatitis without necrosis or infection (principal); E78.1 Pure hyperglyceridemia; E83.52 Hypercalcemia; F10.20 Alcohol dependence, uncomplicated; F17.290 Nicotine dependence, other tobacco product, uncomplicated; F31.9 Bipolar disorder, unspecified; F41.9 Anxiety disorder, unspecified; K76.0 Fatty (change of) liver, not elsewhere classified; K86.0 Alcohol-induced chronic pancreatitis; N28.1 Cyst of kidney, acquired; Z79.899 Other long term (current) drug therapy; Z28.311 Partially vaccinated for COVID-19; Z28.21 Immunization not carried out because of patient refusal; F14.11 Cocaine abuse, in remission; F12.11 Cannabis abuse, in remission; Z91.040 Latex allergy status
CPT/HCPCS: 36415; 74018; 74177; 76705; 80053; 80061; 80306; 81003; 82150; 83690; 84484; 85025; 85610; 96361; 96374; 96375; 99285; 99406

== ENCOUNTER 2024-05-27 11:20 | Emergency (ER) | payer OTHER ==
--- NOTE | 2024-05-27 11:44 | ED ---
Psych HPI - General Source: patient, EMS, RN notes reviewed Mode of arrival: EMS Limitations: no limitations - History of Present Illness MD Complaint: suicidal ideation Onset/Timin -: days(s) Associated Psychiatric Symptoms: depression, suicidal ideation History of same: Yes Quality: constant Worsens With: medication Associated Symptoms: denies other symptoms Treatments Prior to Arrival: none If Self Harm: admits thoughts of self harm <Mike Marroquin - Last Filed: 05/27/24 13:24> <Checo Danielson - Last Filed: 05/27/24 19:06> - General Chief Complaint: Psychiatric Symptoms Stated Complaint: SI Time Seen by Provider: 05/27/24 11:34 - History of Present Illness Initial Comments: This is a 34-year-old male with history of alcohol/drug abuse coming from [place] via EMS for suicidal ideation x 2 days. Patient states he has no current plan but endorses history of suicidal ideation and attempt, having slit his wrist 15 years ago. Denies any recent attempt or attempted overdose. Patient states he recently had his psychological medication changed several weeks ago, stating they are worsening his symptoms. States he is unsure of which medications he is currently taking. Patient denies other physical complaints or homicidal ideation. (Mike Marroquin) - Related Data Home Medications Medication Instructions Recorded Confirmed Acetaminophen Tab [Tylenol] 650 mg PO Q4H PRN 02/25/23 05/27/24 Folic Acid 1 mg PO DAILY 02/25/23 05/27/24 Omeprazole [PriLOSEC] 20 mg PO BID 02/25/23 05/27/24 Benzonatate [Tessalon Perles] 100 mg PO TID PRN 05/27/24 05/27/24 Cholecalciferol [Vitamin D3 (25 25 mcg PO DAILY 05/27/24 05/27/24 Mcg = 1000 Iu)] Metoprolol Tartrate [Lopressor] 50 mg PO BID 05/27/24 05/27/24 Nicotine 14Mg/24Hr Patch [Habitrol 1 patch TRANSDERM DAILY 05/27/24 05/27/24 14Mg/24Hr Patch] Triamcinolone 0.1% Cream [Kenalog 1 applicatio TOPICAL BID PRN 05/27/24 05/27/24 0.1% Cream] haloperidoL [Haldol] 10 mg PO HS 05/27/24 05/27/24 risperiDONE [RisperDAL] 4 mg PO DAILY 05/27/24 05/27/24 traZODone HCL [Desyrel] 100 mg PO HS PRN 05/27/24 05/27/24 Allergies Allergy/AdvReac Type Severity Reaction Status Date / Time cat dander Allergy Rash/Hives Verified 05/27/24 13:04 latex Allergy Rash/Hives Verified 05/27/24 13:04 pollen extracts Allergy Unknown Verified 05/27/24 13:04 Review of Systems ROS Other: All systems not noted in ROS Statement are negative. <CaraMike - Last Filed: 05/27/24 13:24> ROS Other: All systems not noted in ROS Statement are negative. <Checo Danielson - Last Filed: 05/27/24 19:06> ROS Statement: Those systems with pertinent positive or pertinent negative responses have been documented in the HPI. Past Medical History Past Medical History: No Reported History History of Any Multi-Drug Resistant Organisms: None Reported Past Surgical History: Adenoidectomy Past Anesthesia/Blood Transfusion Reactions: No Reported Reaction Past Psychological History: Anxiety, Bipolar, Depression Smoking Status: Current every day smoker, Vaper Past Alcohol Use History: Abuse Past Drug Use History: Cocaine, Marijuana <Mike Marroquin - Last Filed: 05/27/24 13:24> General Exam Limitations: no limitations General appearance: alert, in no apparent distress Head exam: Present: atraumatic, normocephalic, normal inspection Eye exam: Present: normal appearance, PERRL, EOMI. Absent: scleral icterus, conjunctival injection, periorbital swelling ENT exam: Present: normal exam, mucous membranes moist Neck exam: Present: normal inspection. Absent: tenderness, meningismus, lymphadenopathy Respiratory exam: Present: normal lung sounds bilaterally. Absent: respiratory distress, wheezes, rales, rhonchi, stridor Cardiovascular Exam: Present: regular rate, normal rhythm, normal heart sounds. Absent: systolic murmur, diastolic murmur, rubs, gallop, clicks GI/Abdominal exam: Present: soft, normal bowel sounds. Absent: distended, tenderness, guarding, rebound, rigid Extremities exam: Present: normal inspection, full ROM, normal capillary refill. Absent: tenderness, pedal edema, joint swelling, calf tenderness Back exam: Present: normal inspection Neurological exam: Present: alert, oriented X3, CN II-XII intact Psychiatric exam: Present: depressed, flat affect, suicidal ideation Skin exam: Present: warm, dry, intact, normal color. Absent: rash <Mike Marroquin - Last Filed: 05/27/24 13:24> Course Vital Signs 05/27/24 11:25 Temperature 97.9 F Pulse Rate 90 Respiratory 16 Rate Blood Pressure 128/85 O2 Sat by Pulse 99 Oximetry Medical Decision Making <Mike Marroquin - Last Filed: 05/27/24 13:24> - Lab Data Result diagrams: 05/27/24 14:35 05/27/24 14:35 <ErmajoeyCheco hogan - Last Filed: 05/27/24 19:06> - Medical Decision Making Was pt. sent in by a medical professional or institution (Dr. PA, DEPUTY MANAGER, urgent care, hospital, or senior living...) When possible be specific @ -[facility] Did you speak to anyone other than the patient for history (EMS, parent, family, police, friend...)? What history was obtained from this source @ -No Did you review nursing and triage notes (agree or disagree)? Why? @ -I reviewed and agree with nursing and triage notes Were old charts reviewed (outside hosp., previous admission, EMS record, old EKG, old radiological studies, urgent care reports/EKG's, senior living records)? Report findings @ -No old charts were reviewed Differential Diagnosis (chest pain, altered mental status, abdominal pain women, abdominal pain men, vaginal bleeding, weakness, fever, dyspnea, syncope, headache, dizziness, GI bleed, back pain, seizure, CVA, palpatations, mental health, musculoskeletal)? @ -Differential Mental Health Depression, anxiety, bipolar, psychosis, schizophrenia, borderline personality, situational depression, adjustment disorder, behavioral disorder, brain tumor, malingering, substance abuse, encephalopathy, medication reaction, dementia, hypothyroidism, degenerative neurologic disorder, lupus.... This is not meant to be all-inclusive list EKG interpreted by me (3pts min.). @ -Not done X-rays interpreted by me (1pt min.). @ -None done CT interpreted by me (1pt min.). @ -None done U/S interpreted by me (1pt. min.). @ -None done What testing was considered but not performed or refused? (CT, X-rays, U/S, labs)? Why? @ -None What meds were considered but not given or refused? Why? @ -None Did you discuss the management of the patient with other professionals (professionals i.e. DrSteven, PA, DEPUTY MANAGER, lab, RT, psych nurse, child protective services social worker, head animal trainer, teacher, aviation safety officer, case folder)? Give summary @ -No Was smoking cessation discussed for >3mins.? @ -No Was critical care preformed (if so, how long)? @ -No Were there social determinants of health that impacted care today? How? (Homelessness, low income, unemployed, alcoholism, drug addiction, transportation, low edu. Level, literacy, decrease access to med. care, senior living, rehab)? @ -Alcohol/drug addiction Was there de-escalation of care discussed even if they declined (Discuss DNR or withdrawal of care, Hospice)? DNR status @ -No What co-morbidities impacted this encounter? (DM, HTN, Smoking, COPD, CAD, Cancer, CVA, ARF, Chemo, Hep., AIDS, mental health diagnosis, sleep apnea, morbid obesity)? @ -Depression Was patient admitted / discharged? Hospital course, mention meds given and route, prescriptions, significant lab abnormalities, going to OR and other pertinent info. @ -Urine toxicology and CARMEN negative. Spoke to EPS who advised transfer to outpatient facility. Basic lab work, UA and Cepheid test obtained. Discussed patient with Dr. Danielson Undiagnosed new problem with uncertain prognosis? @ -No Drug Therapy requiring intensive monitoring for toxicity (Heparin, Nitro, Insulin, Cardizem)? @ -No Were any procedures done? @ -No Diagnosis/symptom? @ -Suicidal ideation Acute, or Chronic, or Acute on Chronic? @ -Acute Uncomplicated (without systemic symptoms) or Complicated (systemic symptoms)? @ -Uncomplicated Side effects of treatment? @ -No Exacerbation, Progression, or Severe Exacerbation? @ -No Poses a threat to life or bodily function? How? (Chest pain, [place], [place], pneumonia, PE, COPD, DKA, ARF, appy, cholecystitis, CVA, Diverticulitis, Homicidal, Suicidal, threat to staff... and all critical care pts) @ -No (Cara,Mike) Patient will be transferred for further psychiatric care. I did complete a cli nical certification for transfer. (Checo Danielson) - Lab Data Lab Results 05/27/24 05/27/24 05/27/24 Range/Units 12:07 14:35 14:35 WBC 9.8 (3.8-10.6) k/uL RBC 4.67 (4.30-5.90) m/uL Hgb 14.4 (13.0-17.5) gm/dL Hct 42.6 (39.0-53.0) % MCV 91.2 (80.0-100.0) fL MCH 30.7 (25.0-35.0) pg MCHC 33.7 (31.0-37.0) g/dL RDW 12.0 (11.5-15.5) % Plt Count 265 (150-450) k/uL MPV 7.8 Neutrophils % 75 % Lymphocytes % 18 % Monocytes % 5 % Eosinophils % 1 % Basophils % 1 % Neutrophils # 7.3 (1.3-7.7) k/uL Lymphocytes # 1.8 (1.0-4.8) k/uL Monocytes # 0.5 (0-1.0) k/uL Eosinophils # 0.1 (0-0.7) k/uL Basophils # 0.1 (0-0.2) k/uL Sodium (137-145) mmol/L Potassium (3.5-5.1) mmol/L Chloride (98-107) mmol/L Carbon Dioxide (22-30) mmol/L Anion Gap mmol/L BUN (9-20) mg/dL Creatinine (0.66-1.25) mg/dL Est GFR (CKD-EPI)AfAm (>60 ml/min/1.73 sqM) Est GFR (CKD-EPI)NonAf (>60 ml/min/1.73 sqM) Glucose (74-99) mg/dL Calcium (8.4-10.2) mg/dL Total Bilirubin (0.2-1.3) mg/dL AST (17-59) U/L ALT (4-49) U/L Alkaline Phosphatase (38-126) U/L Total Protein (6.3-8.2) g/dL Albumin (3.5-5.0) g/dL Urine Color Colorless Urine Appearance Clear (Clear) Urine pH 6.5 (5.0-8.0) Ur Specific [place] 1.006 (1.001-1.035) Urine Protein Negative (Negative) Urine Glucose (UA) Negative (Negative) Urine Ketones Negative (Negative) Urine Blood Negative (Negative) Urine Nitrite Negative (Negative) Urine Bilirubin Negative (Negative) Urine Urobilinogen <2.0 (<2.0) mg/dL Ur Leukocyte Esterase Negative (Negative) Urine Opiates Screen Not Detected (NotDetected) Ur Oxycodone Screen Not Detected (NotDetected) Urine Methadone Screen Not Detected (NotDetected) Ur Barbiturates Screen Not Detected (NotDetected) U Tricyclic Antidepress Not Detected (NotDetected) Ur Phencyclidine Scrn Not Detected (NotDetected) Ur Amphetamines Screen Not Detected (NotDetected) U Methamphetamines Scrn Not Detected (NotDetected) U Benzodiazepines Scrn Not Detected (NotDetected) Urine Cocaine Screen Not Detected (NotDetected) U Marijuana (THC) Screen Not Detected (NotDetected) Influenza Type A (PCR) (Not Detectd) Influenza Type B (PCR) (Not Detectd) RSV (PCR) (Not Detectd) SARS-CoV-2 (PCR) (Not Detectd) 05/27/24 05/27/24 Range/Units 14:35 14:35 WBC (3.8-10.6) k/uL RBC (4.30-5.90) m/uL Hgb (13.0-17.5) gm/dL Hct (39.0-53.0) % MCV (80.0-100.0) fL MCH (25.0-35.0) pg MCHC (31.0-37.0) g/dL RDW (11.5-15.5) % Plt Count (150-450) k/uL MPV Neutrophils % % Lymphocytes % % Monocytes % % Eosinophils % % Basophils % % Neutrophils # (1.3-7.7) k/uL Lymphocytes # (1.0-4.8) k/uL Monocytes # (0-1.0) k/uL Eosinophils # (0-0.7) k/uL Basophils # (0-0.2) k/uL Sodium 138 (137-145) mmol/L Potassium 4.0 (3.5-5.1) mmol/L Chloride 101 (98-107) mmol/L Carbon Dioxide 27 (22-30) mmol/L Anion Gap 10 mmol/L BUN 13 (9-20) mg/dL Creatinine 0.77 (0.66-1.25) mg/dL Est GFR (CKD-EPI)AfAm >90 (>60 ml/min/1.73 sqM) Est GFR (CKD-EPI)NonAf >90 (>60 ml/min/1.73 sqM) Glucose 129 H (74-99) mg/dL Calcium 10.1 (8.4-10.2) mg/dL Total Bilirubin 1.3 (0.2-1.3) mg/dL AST 28 (17-59) U/L ALT 29 (4-49) U/L Alkaline Phosphatase 53 (38-126) U/L Total Protein 7.4 (6.3-8.2) g/dL Albumin 4.7 (3.5-5.0) g/dL Urine Color Urine Appearance (Clear) Urine pH (5.0-8.0) Ur Specific [place] (1.001-1.035) Urine Protein (Negative) Urine Glucose (UA) (Negative) Urine Ketones (Negative) Urine Blood (Negative) Urine Nitrite (Negative) Urine Bilirubin (Negative) Urine Urobilinogen (<2.0) mg/dL Ur Leukocyte Esterase (Negative) Urine Opiates Screen (NotDetected) Ur Oxycodone Screen (NotDetected) Urine Methadone Screen (NotDetected) Ur Barbiturates Screen (NotDetected) U Tricyclic Antidepress (NotDetected) Ur Phencyclidine Scrn (NotDetected) Ur Amphetamines Screen (NotDetected) U Methamphetamines Scrn (NotDetected) U Benzodiazepines Scrn (NotDetected) Urine Cocaine Screen (NotDetected) U Marijuana (THC) Screen (NotDetected) Influenza Type A (PCR) Not Detected (Not Detectd) Influenza Type B (PCR) Not Detected (Not Detectd) RSV (PCR) Not Detected (Not Detectd) SARS-CoV-2 (PCR) Not Detected (Not Detectd) Disposition Is patient prescribed a controlled substance at d/c from ED?: No Time of Disposition: 12:51 - Out of Hospital Transfer - Req. Specs Out of Hospital Transfer - Requested Specifics: Psychiatric Non-ICU <Mike Marroquin - Last Filed: 05/27/24 13:24> <Checo Danielson - Last Filed: 05/27/24 19:06> Clinical Impression: Suicidal ideation Disposition: TRANSFER TO PSYCH HOSP/UNIT Condition: Good Referrals: None,Stated [Primary Care Provider] - 1-2 days
[2024-05-27 12:59] LABS: Amphetamine Screen,Urine Not Detected (NotDetected); Barbiturate Screen,Urine Not Detected (NotDetected); Benzodiazepines Screen,Urine Not Detected (NotDetected); Cocaine Screen,Urine Not Detected (NotDetected); Methadone Screen, Urine Not Detected (NotDetected); Opiate Screen,Urine Not Detected (NotDetected); Phencyclidine Screen,Urine Not Detected (NotDetected); Tricyclic Antidepressant,Urine Not Detected (NotDetected); Urn Cannabinoid Scrn Not Detected (NotDetected)
[2024-05-27 13:00] LABS: Oxycodone Screen, Urine Not Detected (NotDetected)
[2024-05-27 14:58] LABS: Appearance,Urine Clear (Clear); Basophils # (A) 0.1 k/uL (0-0.2); Basophils % (A) 1 %; Bilirubin,Urine Negative (Negative); Blood,Urine Negative (Negative); Color,Urine Colorless; Eosinophils # (A) 0.1 k/uL (0-0.7); Eosinophils % (A) 1 %; Glucose,Urine (UA) Negative (Negative); HCT 42.6 % (39.0-53.0); HGB 14.4 gm/dL (13.0-17.5); Ketones,Urine Negative (Negative); Leukocyte Esterase,Urine Negative (Negative); Lymphocytes # (A) 1.8 k/uL (1.0-4.8); Lymphocytes % (A) 18 %; MCH 30.7 pg (25.0-35.0); MCHC 33.7 g/dL (31.0-37.0); MCV 91.2 fL (80.0-100.0); Mean Platelet Volume 7.8; Monocytes # (A) 0.5 k/uL (0-1.0); Monocytes % (A) 5 %; Neutrophils # (A) 7.3 k/uL (1.3-7.7); Neutrophils % (A) 75 %; Nitrite,Urine Negative (Negative); PH, Urine 6.5 (5.0-8.0); Platelet Count 265 k/uL (150-450); Protein,Urine Negative (Negative); RBC 4.67 m/uL (4.30-5.90); Specific Gravity,Urine 1.006 (1.001-1.035); Urobilinogen,Urine <2.0 mg/dL (<2.0); WBC 9.8 k/uL (3.8-10.6)
[2024-05-27 15:14] LABS: ALT 29 U/L (4-49); AST 28 U/L (17-59); African American GFR (CKD) >90 (>60 ml/min/1.73 sqM); Albumin 4.7 g/dL (3.5-5.0); Alkaline Phosphatase 53 U/L (38-126); Anion Gap 10 mmol/L; Blood Urea Nitrogen 13 mg/dL (9-20); Calcium 10.1 mg/dL (8.4-10.2); Carbon Dioxide 27 mmol/L (22-30); Chloride 101 mmol/L (98-107); Glucose 129 mg/dL (74-99); Non-African American GFR(CKD) >90 (>60 ml/min/1.73 sqM); Sodium 138 mmol/L (137-145); Total Bilirubin 1.3 mg/dL (0.2-1.3); Total Protein 7.4 g/dL (6.3-8.2)
[2024-05-27 15:21] LABS: Influenza A Not Detected (Not Detectd); Influenza B Not Detected (Not Detectd); RSV Not Detected (Not Detectd)
[2024-05-28 08:07] VITALS: RESP 16
[2024-05-28 19:26] VITALS: BP 146/95; PULSE 88; TEMP 99.2
== END 2024-05-28 19:25 ==
LOC: EC 11:20
DX: R45.851 Suicidal ideations (principal); F32.A Depression, unspecified; F17.290 Nicotine dependence, other tobacco product, uncomplicated; Z91.040 Latex allergy status; Z91.09 Other allergy status, other than to drugs and biological substances; Z11.52 Encounter for screening for COVID-19
CPT/HCPCS: 36415; 80053; 80306; 81003; 82075; 85025; 87636; 99285